=== PATIENT | female | born 1985 | race Caucasian/White ===

== ENCOUNTER 2017-09-05 19:17 | Emergency (ER) | payer MEDICAID ==
[2017-09-05 19:21] VITALS: BP 126/79
--- NOTE | 2017-09-05 19:45 | ER Document Report ---
ED ENT - General Chief Complaint: Ear Pain Stated Complaint: EAR PAIN,DIZZINESS Time Seen by Provider: 09/05/17 19:33 Notes: 32 year female c/o bilat ear itching and pain x 5 mos. itching becomes so intense it interferes with sleep. no fever. + swelling to ears. + drainage from ears TRAVEL OUTSIDE OF THE [place] IN LAST 30 DAYS: No - HPI Patient complains to provider of: Ear problem Location of pain: Ears - Related Data Allergies/Adverse Reactions: No Known Allergies Allergy (Verified 09/06/15 02:15) Past Medical History - General Information source: Patient - Social History Smoking Status: Never Smoker Frequency of alcohol use: None Drug Abuse: None Lives with: Family Family History: Reviewed & Not Pertinent - Medical History Medical History: Negative Psychiatric Medical History: Reports: Hx Attention Deficit Hyperactivity Disorder Past Surgical History: Denies: Hx Hysterectomy, Hx Pacemaker - Immunizations Hx Diphtheria, Pertussis, Tetanus Vaccination: Yes Review of Systems - Review of Systems Constitutional: No symptoms reported EENT: No symptoms reported Cardiovascular: No symptoms reported Respiratory: No symptoms reported Gastrointestinal: No symptoms reported Genitourinary: No symptoms reported Female Genitourinary: No symptoms reported Musculoskeletal: No symptoms reported Skin: No symptoms reported Hematologic/Lymphatic: No symptoms reported Neurological/Psychological: No symptoms reported Physical Exam - Vital signs Vitals: Temp Pulse Resp BP Pulse Ox 97.9 F 105 H 18 126/79 H 98 09/05/17 19:17 09/05/17 19:17 09/05/17 19:17 09/05/17 19:17 09/05/17 19:17 Interpretation: Normal - General General appearance: Appears well, Alert - HEENT Head: Normocephalic, Atraumatic Eyes: Normal Conjunctiva: Normal Pupils: PERRL Ears: Other - Honey-colored crusts and scaling are seen on the postauricular skin, tragus and intertragus notch External canal: Erythema, Swollen, Other - + thick white purulent drainage Tympanic membrane: Normal - Respiratory Respiratory status: No respiratory distress Chest status: Nontender Breath sounds: Normal Chest palpation: Normal - Cardiovascular Rhythm: Regular Heart sounds: Normal auscultation Murmur: No - Abdominal Inspection: Normal Distension: No distension Bowel sounds: Normal Tenderness: Nontender Organomegaly: No organomegaly - Back Back: Normal, Nontender - Extremities General upper extremity: Normal inspection, Nontender, Normal color, Normal ROM , Normal temperature General lower extremity: Normal inspection, Nontender, Normal color, Normal ROM , Normal temperature, Normal weight bearing. No: Saad's sign - Neurological Neuro grossly intact: Yes Cognition: Normal Orientation: AAOx4 [place] Coma Scale Eye Opening: Spontaneous [place] Coma Scale Verbal: Oriented [place] Coma Scale Motor: Obeys Commands Viel[place] Coma Scale Total: 15 Speech: Normal Motor strength normal: LUE, RUE, LLE, RLE Sensory: Normal - Psychological Associated symptoms: Normal affect, Normal mood - Skin Skin Temperature: Warm Skin Moisture: Dry Skin Color: Normal Course - Re-evaluation Re-evalutation: 09/05/17 19:45 low suspicion for sepsis, mastoiditis, abscess. skin changes exhibit eczematous changes with possibly a secondary staph infection. will treat with oral and topical antibiotics and a topical steroid cream. pt instructed to follow up with primary care tomorrow for further evaluation and treatment - Vital Signs Vital signs: Temp Pulse Resp BP Pulse Ox 97.9 F 105 H 18 126/79 H 98 09/05/17 19:17 09/05/17 19:17 09/05/17 19:17 09/05/17 19:17 09/05/17 19:17 Discharge - Discharge Clinical Impression: External otitis Qualifiers: Otitis externa type: unspecified type Chronicity: acute Laterality: bilateral Qualified Code(s): H60.503 - Unspecified acute noninfective otitis externa, bilateral Instructions: Otitis Externa ([facility]), Antibiotic Therapy ([facility]), Use of Ear Drops ([facility]), Topical Steroid Cream or Ointment ([facility]), Meclizine ([facility]) Additional Instructions: please take medications as prescribed please follow up with your primary care tomorrow for further evaluation and treatment Prescriptions: Cephalexin Monohydrate [Keflex 500 mg Capsule] 500 mg PO QID #28 capsule Ciprofloxacin HCl/Dexameth [Ciprodex Otic Suspension Drops] 3 drop BTH_EAR BID # 1 bottle Hydrocortisone [Hydrocortisone 1% Cream 28.35 Gm] 1 applic TP BID #30 g Hydroxyzine HCl [Atarax 25 mg Tablet] 2 tab PO QID #25 tablet
== END 2017-09-05 20:20 | disposition home or self-care (01) ==
LOC: ER 19:17
DX: H60.503 Unspecified acute noninfective otitis externa, bilateral (principal)
CPT/HCPCS: 99282

== ENCOUNTER 2017-11-30 17:06 | Emergency (ER) | payer SELFPAY ==
--- NOTE | 2017-11-30 17:25 | ER Document Report ---
ED General - General Chief Complaint: Anxiety Stated Complaint: ANXIETY Mode of Arrival: Ambulatory Information source: Patient Notes: Patient is 32-year-old female with a history of ADHD and depression presents to the emergency department due to an anxiety attack. Patient states that it feels like there are shocks going through her body and feels that something is crawling in her hair and ears. Patient that she was unable to get any sleep last night due to there being black spots on her short that she has tried to clean with bleach. Patient denies any fevers or recent stress although mother states she was under a lot of stress last year. TRAVEL OUTSIDE OF THE [place] IN LAST 30 DAYS: No - Related Data Allergies/Adverse Reactions: No Known Allergies Allergy (Verified 11/30/17 17:07) Past Medical History - General Information source: Patient - Social History Smoking Status: Unknown if Ever Smoked Family History: Reviewed & Not Pertinent Renal/ Medical History: Denies: Hx Peritoneal Dialysis Psychiatric Medical History: Reports: Hx Attention Deficit Hyperactivity Disorder, Hx Depression - Immunizations Hx Diphtheria, Pertussis, Tetanus Vaccination: Yes Physical Exam - Vital signs Vitals: Temp Pulse Resp BP Pulse Ox 98.1 F 112 H 20 107/84 100 11/30/17 17:11 11/30/17 17:11 11/30/17 17:11 11/30/17 17:11 11/30/17 17:11 - Notes Notes: GENERAL: Alert,very anxious,tearful. Constantly running hands through her hair. HEAD: Normocephalic, atraumatic. EYES: Pupils equal, round, and reactive to light. Extraocular movements intact. ENT: Oral mucosa moist, tongue midline. NECK: Full range of motion. Supple. Trachea midline. LUNGS: Clear to auscultation bilaterally, no wheezes, rales, or rhonchi. No respiratory distress. HEART: Regular rate and rhythm. No murmurs, gallops, or rubs. EXTREMITIES: Moves all 4 extremities spontaneously. NEUROLOGICAL: Alert and oriented x3. Normal speech. PSYCH: Very anxious, tearful. SKIN: Warm, dry, normal turgor. No rashes or lesions noted. Course - Vital Signs Vital signs: Temp Pulse Resp BP Pulse Ox 98.1 F 112 H 20 107/84 100 11/30/17 17:11 11/30/17 17:11 11/30/17 17:11 11/30/17 17:11 11/30/17 17:11 Discharge - Discharge Instructions: Anxiety ([facility]) Scribe Documentation - Scribe Written by Rodney:: Rodney Guerrero, 11/30/2017 17:31 acting as scribe for :: Demario
[2017-11-30] MEDS ORDERED: LORAZEPAM INJ 2 MG/1 ML VIAL IM ONE (17:31)
[2017-11-30 17:53] LABS: ABSOLUTE BASOPHILS # (AUTO) 0.1 10^3/uL (0.0-0.2); ABSOLUTE EOSINOPHILS # (AUTO) 0.5 10^3/uL (0.0-0.6); ABSOLUTE LYMPHOCYTES (AUTO) 3.4 10^3/uL (0.5-4.7); ABSOLUTE MONOCYTES (AUTO) 1.8 10^3/uL (0.1-1.4); ABSOLUTE NEUT (AUTO) 6.8 10^3/uL (1.7-8.2); EOSINOPHILS % (AUTO) 4.1 % (0-6); HEMATOCRIT 39.7 % (36.0-47.0); HEMOGLOBIN 14.1 g/dL (12.0-15.5); MEAN CORPUSCULAR HEMOGLOBIN 30.3 pg (27.0-33.4); MEAN CORPUSCULAR HGB CONC 35.4 g/dL (32.0-36.0); MEAN CORPUSCULAR VOLUME 86 fl (80-97); MONOCYTES % (AUTO) 14.2 % (3-13); PLATELET COUNT 322 10^3/uL (150-450); RED BLOOD COUNT 4.64 10^6/uL (3.72-5.28); RED CELL DISTRIBUTION WIDTH 13.2 % (11.5-14.0); SEGMENTED NEUTROPHILS % (AUTO) 53.7 % (42-78); TOTAL CELLS COUNTED % (AUTO) 100 %; WHITE BLOOD COUNT 12.6 10^3/uL (4.0-10.5)
[2017-11-30 17:58] LABS: APPEARANCE,URINE SLIGHTLY-CLOUDY; BILIRUBIN,URINE NEGATIVE (NEGATIVE); GLUCOSE, URINE NEGATIVE (NEGATIVE); KETONES,URINE TRACE mg/dL (NEGATIVE); LEUKOCYTE ESTERASE,URINE SMALL (NEGATIVE); NITRITE,URINE NEGATIVE (NEGATIVE); PROTEIN,URINE 100 mg/dL (NEGATIVE); UROBILINOGEN,URINE NEGATIVE mg/dL (<2.0)
[2017-11-30 18:03] LABS: COLOR,URINE DARK YELLOW
[2017-11-30 18:16] LABS: ALANINE AMINOTRANSFERASE 49 U/L (9-52); ALBUMIN 4.6 g/dL (3.5-5.0); ALKALINE PHOSPHATASE 69 U/L (38-126); ANION GAP 16 (5-19); ASPARTATE AMINO TRANSFERASE 51 U/L (14-36); BILIRUBIN,DIRECT 0.3 mg/dL (0.0-0.4); BILIRUBIN,TOTAL 0.4 mg/dL (0.2-1.3); BLOOD UREA NITROGEN 14 mg/dL (7-20); CALCIUM 9.4 mg/dL (8.4-10.2); CARBON DIOXIDE 20 mmol/L (22-30); CHLORIDE 108 mmol/L (98-107); GLUCOSE 106 mg/dL (75-110); POTASSIUM 3.6 mmol/L (3.6-5.0); SODIUM 144.3 mmol/L (137-145); TOTAL PROTEIN 7.3 g/dL (6.3-8.2)
[2017-11-30 18:17] LABS: ACETAMINOPHEN < 10 ug/mL (10-30); ALCOHOL < 10 mg/dL (NONE DETECTED); SALICYLATE < 1.0 mg/dL (2.0-20.0)
[2017-11-30 18:42] LABS: URINE BARBITURATES SCREEN NEGATIVE; URINE BENZODIAZEPINES SCREEN NEGATIVE; URINE COCAINE SCREEN NEGATIVE; URINE MARIJUANA (THC) SCREEN NEGATIVE; URINE METHADONE SCREEN NEGATIVE; URINE PHENCYCLIDINE SCREEN NEGATIVE
[2017-11-30] MEDS ORDERED: HYDROXYZINE PAMOATE 50 MG CAPSULE PO ONE (18:47)
--- NOTE | 2017-11-30 18:49 | EKG REPORT ---
SEVERITY:- ABNORMAL ECG - SINUS RHYTHM DIFFUSE NONSPECIFIC ST-T CHANGES : Confirmed by: Brian Douglas MD 30-Nov-2017 18:48:21
--- NOTE | 2017-11-30 18:55 | ER Document Report ---
ED General - General Chief Complaint: Anxiety Stated Complaint: ANXIETY Time Seen by Provider: 11/30/17 17:30 Mode of Arrival: Ambulatory Information source: Patient, Parent Notes: 32-year-old female presents with complaints of anxiety insomnia and believing that there is bugs all over her. Patient has been scratching at her head for the past few weeks, she denies any fevers or chills denies any nausea vomiting. Patient states she sees black bugs all over. TRAVEL OUTSIDE OF THE [place] IN LAST 30 DAYS: No - HPI Onset: Other Onset/Duration: Persistent Quality of pain: No pain Severity: Mild Pain Level: Denies Associated symptoms: Other - Insomnia Exacerbated by: Denies Relieved by: Denies Similar symptoms previously: No Recently seen / treated by doctor: No - Related Data Allergies/Adverse Reactions: No Known Allergies Allergy (Verified 11/30/17 17:07) Past Medical History - General Information source: Patient - Social History Smoking Status: Never Smoker Cigarette use (# per day): No Chew tobacco use (# tins/day): No Smoking Education Provided: No Frequency of alcohol use: None Drug Abuse: None Family History: Reviewed & Not Pertinent Patient has suicidal ideation: No Patient has homicidal ideation: No Renal/ Medical History: Denies: Hx Peritoneal Dialysis Psychiatric Medical History: Reports: Hx Attention Deficit Hyperactivity Disorder, Hx Depression Past Surgical History: Denies: Hx Hysterectomy, Hx Pacemaker - Immunizations Hx Diphtheria, Pertussis, Tetanus Vaccination: Yes Review of Systems - Review of Systems Notes: REVIEW OF SYSTEMS: CONSTITUTIONAL : Denies fever, chills, or sweats. Denies recent illness. EENT: States there are foreign objects in her ears CARDIOVASCULAR: Denies chest pain. Denies palpitations or racing or irregular heart beat. Denies ankle edema. RESPIRATORY: Denies cough, cold, or chest congestion. Denies shortness of breath, difficulty breathing, or wheezing. GASTROINTESTINAL: Denies abdominal pain or distention. Denies nausea, vomiting , or diarrhea. Denies blood in vomitus, stools, or per rectum. Denies black, tarry stools. Denies constipation. GENITOURINARY: Denies difficulty urinating, painful urination, burning, frequency, blood in urine, or discharge. FEMALE GENITOURINARY: Denies vaginal bleeding, heavy or abnormal periods, irregular periods. Denies vaginal discharge or odor. MUSCULOSKELETAL: Denies back or neck pain or stiffness. Denies joint pain or swelling. SKIN: Itching HEMATOLOGIC : Denies easy bruising or bleeding. LYMPHATIC: Denies swollen, enlarged glands. NEUROLOGICAL: Denies confusion or altered mental status. Denies passing out or loss of consciousness. Denies dizziness or lightheadedness. Denies headache. Denies weakness or paralysis or loss of use of either side. Denies problems with gait or speech. Denies sensory loss, numbness, or tingling. Denies seizures. PSYCHIATRIC: Anxiety stress. ALL OTHER SYSTEMS REVIEWED AND NEGATIVE. PHYSICAL EXAMINATION: GENERAL: Patient is having erratic movements on the bed HEAD: Atraumatic, normocephalic. EYES: Pupils equal round and reactive to light, extraocular movements intact, conjunctiva are normal. ENT: Nares patent, oropharynx clear without exudates. Moist mucous membranes. NECK: Normal range of motion, supple without lymphadenopathy LUNGS: Breath sounds clear to auscultation bilaterally and equal. No wheezes rales or rhonchi. HEART: Regular rate and rhythm without murmurs ABDOMEN: Soft, nontender, nondistended abdomen. No guarding, no rebound. No masses appreciated. Female : deferred Musculoskeletal: Normal range of motion, no pitting or edema. No cyanosis. NEUROLOGICAL: Cranial nerves grossly intact. Normal speech, normal gait. Normal sensory, motor exams PSYCH: Anxious SKIN: Multiple scabs from picking at herself Dictation was performed using [employer] voice recognition software Physical Exam - Vital signs Vitals: Temp Pulse Resp BP Pulse Ox 98.1 F 112 H 20 107/84 100 11/30/17 17:11 11/30/17 17:11 11/30/17 17:11 11/30/17 17:11 11/30/17 17:11 Course - Re-evaluation Re-evalutation: 11/30/17 20:34 Patient's mother notes that she is doing better than her usual baseline, that she overall is acting appropriate however does note that she has not been sleeping well and has been quite anxious, given these symptoms and presentation and a normal examination otherwise I do believe it is all anxiety related, I will treat the patient with Vistaril for anxiety for insomnia and for the itching After performing a Medical Screening Examination, I estimate there is LOW risk for any life threatening rash. At this time the patient looks extremely well and there are no signs of systemic infection, however this may change at any time and the rash may change. I have reevaluated this patient multiple times and no significant life threatening changes are noted. The patient and I have discussed the diagnosis and risks, and we agree with discharging home with close follow-up with the understanding that symptoms and presentations can change. We also discussed returning to the Emergency Department immediately if new or worsening symptoms occur. We have discussed the symptoms which are most concerning (e.g., changing or worsening pain, fever, numbness, weakness, cool or painful digits) that necessitate immediate return. - Vital Signs Vital signs: Temp Pulse Resp BP Pulse Ox 97.4 F 103 H 20 95/64 L 99 11/30/17 19:17 11/30/17 19:17 11/30/17 19:17 11/30/17 19:17 11/30/17 19:17 - Laboratory Result Diagrams: 11/30/17 17:29 11/30/17 17:29 Laboratory results interpreted by me: 11/30/17 11/30/17 11/30/17 17:29 17:29 17:29 WBC 12.6 H Monocytes % 14.2 H Absolute Monocytes 1.8 H Chloride 108 H Carbon Dioxide 20 L AST 51 H Urine Protein 100 H Urine Ketones TRACE H Ur Leukocyte Esterase SMALL H Urine Ascorbic Acid 40 H Salicylates < 1.0 L Acetaminophen < 10 L Discharge - Discharge Clinical Impression: Anxiety, Itching Insomnia Qualifiers: Insomnia type: unspecified Qualified Code(s): G47.00 - Insomnia, unspecified Condition: Stable Disposition: HOME, SELF-CARE Instructions: Anxiety ([facility]) Additional Instructions: Please follow up with your physicians for further care or return immediately if there are any other concerns Prescriptions: Hydroxyzine Pamoate [Vistaril 25 mg Capsule] 25 mg PO Q6 30 Days #120 capsule Forms: Return to Work
--- NOTE | 2017-11-30 19:15 | ER Document Report ---
ED Medical Screen (RME) - General Chief Complaint: Anxiety Stated Complaint: ANXIETY Time Seen by Provider: 11/30/17 17:30 Mode of Arrival: Ambulatory Notes: Patient is 32-year-old female with a history of ADHD and depression presents to the emergency department due to an anxiety attack. Patient states that it feels like there are shocks going through her body and feels that something is crawling in her hair and ears. Patient that she was unable to get any sleep last night due to there being black spots on her short that she has tried to clean with bleach. Patient denies any fevers or recent stress although mother states she was under a lot of stress last year. TRAVEL OUTSIDE OF THE [place] IN LAST 30 DAYS: No - Related Data Allergies/Adverse Reactions: No Known Allergies Allergy (Verified 11/30/17 17:07) Past Medical History - Social History Frequency of alcohol use: None Drug Abuse: None Renal/ Medical History: Denies: Hx Peritoneal Dialysis Psychiatric Medical History: Reports: Hx Attention Deficit Hyperactivity Disorder, Hx Depression Past Surgical History: Denies: Hx Hysterectomy, Hx Pacemaker - Immunizations Hx Diphtheria, Pertussis, Tetanus Vaccination: Yes Physical Exam - Vital signs Vitals: Temp Pulse Resp BP Pulse Ox 98.1 F 112 H 20 107/84 100 11/30/17 17:11 11/30/17 17:11 11/30/17 17:11 11/30/17 17:11 11/30/17 17:11 - Notes Notes: GENERAL: Alert,very anxious,tearful. Constantly running hands through her hair. HEAD: Normocephalic, atraumatic. EYES: Pupils equal, round, and reactive to light. Extraocular movements intact. ENT: Oral mucosa moist, tongue midline. NECK: Full range of motion. Supple. Trachea midline. LUNGS: Clear to auscultation bilaterally, no wheezes, rales, or rhonchi. No respiratory distress. HEART: Regular rate and rhythm. No murmurs, gallops, or rubs. EXTREMITIES: Moves all 4 extremities spontaneously. NEUROLOGICAL: Alert and oriented x3. Normal speech. PSYCH: Very anxious, tearful. SKIN: Warm, dry, normal turgor. No rashes or lesions noted. Course - Vital Signs Vital signs: Temp Pulse Resp BP Pulse Ox 97.4 F 103 H 20 95/64 L 99 11/30/17 19:17 11/30/17 19:17 11/30/17 19:17 11/30/17 19:17 11/30/17 19:17 - Laboratory Result Diagrams: 11/30/17 17:29 11/30/17 17:29 Laboratory results interpreted by me: 11/30/17 11/30/17 11/30/17 17:29 17:29 17:29 WBC 12.6 H Monocytes % 14.2 H Absolute Monocytes 1.8 H Chloride 108 H Carbon Dioxide 20 L AST 51 H Urine Protein 100 H Urine Ketones TRACE H Ur Leukocyte Esterase SMALL H Urine Ascorbic Acid 40 H Salicylates < 1.0 L Acetaminophen < 10 L Doctor's Discharge - Discharge Condition: Stable Disposition: HOME, SELF-CARE Instructions: Anxiety ([facility]) Additional Instructions: Please follow up with your physicians for further care or return immediately if there are any other concerns Prescriptions: Hydroxyzine Pamoate [Vistaril 25 mg Capsule] 25 mg PO Q6 30 Days #120 capsule Forms: Return to Work Scribe Documentation - Scribe Written by Rodney:: Rodney Guerrero, 11/30/2017 19:19 acting as scribe for :: Demario
[2017-11-30 19:18] VITALS: BP 95/64
== END 2017-11-30 19:18 | disposition home or self-care (01) ==
LOC: ER 17:06
DX: L29.9 Pruritus, unspecified (principal); F41.9 Anxiety disorder, unspecified; G47.00 Insomnia, unspecified
CPT/HCPCS: 93005; 99283; 96372; 36415; 80307 ×4; 84703; 85025; 80053; 81001; 93010; J2060

== ENCOUNTER 2019-08-29 08:43 | Emergency (ER) | payer OTHER ==
[2019-08-29] MEDS ORDERED: DIPH/PERTUSS(ACELL)/TETANUS VAC/PF 0.5 ML SYR (>=10YO) IM ONE (09:27)
[2019-08-29] MEDS ORDERED: ACETAMINOPHEN 325 MG TABLET PO ONE (09:27)
--- NOTE | 2019-08-29 09:29 | ER Document Report ---
ED Medical Screen (RME) - General Chief Complaint: Laceration Stated Complaint: HEAD INJURY Time Seen by Provider: 08/29/19 09:22 Notes: Patient is a 34-year-old female who presents to the emergency department with head trauma. Patient was at work and a very large heavy pole fell on top of her head, causing her to have a laceration to her right anterior head. Patient states that she feels a little lightheaded. Denies any new weakness. Patient was able to walk. Exam: Hematoma and laceration noted to anterior right head, about 2 cm away from hairline. I have greeted and performed a rapid initial assessment of this patient. A comprehensive ED assessment and evaluation of the patient, analysis of test results and completion of medical decision making process will be conducted by an additional ED providers. TRAVEL OUTSIDE OF THE [place] IN LAST 30 DAYS: No - Related Data Allergies/Adverse Reactions: No Known Allergies Allergy (Verified 08/29/19 09:19) Past Medical History - Social History Chew tobacco use (# tins/day): No Frequency of alcohol use: None Drug Abuse: None Renal/ Medical History: Denies: Hx Peritoneal Dialysis Psychiatric Medical History: Reports: Hx Attention Deficit Hyperactivity Disorder, Hx Depression Past Surgical History: Denies: Hx Hysterectomy, Hx Pacemaker - Immunizations Hx Diphtheria, Pertussis, Tetanus Vaccination: Yes Physical Exam - Vital signs Vitals: Temp Pulse Resp BP Pulse Ox 97.9 F 90 20 124/81 100 08/29/19 08:47 08/29/19 08:47 08/29/19 08:47 08/29/19 08:47 08/29/19 08:47 Course - Vital Signs Vital signs: Temp Pulse Resp BP Pulse Ox 97.9 F 90 20 124/81 100 08/29/19 08:47 08/29/19 08:47 08/29/19 08:47 08/29/19 08:47 08/29/19 08:47
--- NOTE | 2019-08-29 10:03 | RADIOLOGY REPORT (SQ) ---
EXAM DESCRIPTION: CT HEAD WITHOUT COMPLETED DATE/TIME: 08/29/2019 9:48 am REASON FOR STUDY: head trauma; heavy pole fell on head COMPARISON: 07/25/2009 TECHNIQUE: Axial images acquired through the brain without intravenous contrast. Images reviewed wi th bone, brain and subdural windows. Additional sagittal and coronal reconstructions were generated. Images stored on PACS. All CT scanners at this facility use dose modulation, iterative reconstruction, and/or weight based d osing when appropriate to reduce radiation dose to as low as reasonably achievable (ALARA). [facility]: Dose Right [facility]: CareDose [facility]: Dose Right [facility]: Teradose 4D [facility]: LiveOps RADIATION DOSE: CT Rad equipment meets quality standard of care and radiation dose reduction techniq ues were employed. CTDIvol: 53.2 mGy. DLP: 1070 mGy-cm. mGy. LIMITATIONS: None. FINDINGS: VENTRICLES: Normal size and contour. CEREBRUM: No masses. No hemorrhage. No midline shift. No evidence for acute infarction. Normal gra y/white matter differentiation. No areas of low density in the white matter. CEREBELLUM: No masses. No hemorrhage. No alteration of density. No evidence for acute infarction. EXTRAAXIAL SPACES: No fluid collections. No masses. Unchanged pineal gland calcifications. ORBITS AND GLOBE: No intra- or extraconal masses. Normal contour of globe without masses. CALVARIUM: No fracture. PARANASAL SINUSES: No fluid or mucosal thickening. SOFT TISSUES: Soft tissue swelling and subcutaneous gas along the right frontal calvarium. OTHER: No other significant finding. IMPRESSION: Soft tissue swelling and subcutaneous gas along the right frontal calvarium. No evidenc e of fracture or other acute intracranial process. EVIDENCE OF ACUTE STROKE: NO. COMMENT: Quality ID # [id number]: Final reports with documentation of one or more dose reduction techniques (e.g., Automated exposure control, adjustment of the mA and/or kV according to patient size, use of iterative reconstruction technique) TECHNICAL DOCUMENTATION: JOB ID: [id number] [employer]- All Rights Reserved Reading location - IP/workstation name: [email or web address]
[2019-08-29] MEDS ORDERED: LIDOCAINE 1% INJ-PF (10 MG/ML) 30 ML SDV INJ ONE (10:29)
--- NOTE | 2019-08-29 10:36 | ER Document Report ---
ED General - General Chief Complaint: Laceration Stated Complaint: HEAD INJURY Time Seen by Provider: 08/29/19 09:22 Primary Care Provider: PARISH VALADEZ MD [NO LOCAL MD] - Follow up as needed TRAVEL OUTSIDE OF THE [place] IN LAST 30 DAYS: No - HPI Notes: Patient is a 34-year-old female with no significant past medical history who presents complaining of head injury by a metal pole 2 to 3 hours ago. Patient states that it was a loose pole on 1 of the moving trucks that hit her on the top of the head. + mild OCHOA, no worst of life and not severe. Patient states that she did not lose consciousness or have any vomiting. Patient states that she did feel somewhat nauseated. Patient states that she feels well now. She does have soreness to the top of her head and was bleeding. Unknown last tetanus. Denies drug allergies. Denies any fever, neck pain, changes in vision/speech/mentation/hearing, URI, sore throat, chest pain, palpitations, syncope, cough, shortness of breath, wheeze, dyspnea, abdominal pain, vomiting/diarrhea, urinary retention, dysuria, hematuria, loss of control of bowel or bladder, numbness/tingling, saddle anesthesia, muscle paralysis/weakness, or rash. - Related Data Allergies/Adverse Reactions: No Known Allergies Allergy (Verified 08/29/19 09:19) Past Medical History - Social History Smoking Status: Never Smoker Chew tobacco use (# tins/day): No Frequency of alcohol use: None Drug Abuse: None Family History: Reviewed & Not Pertinent Patient has suicidal ideation: No Patient has homicidal ideation: No Renal/ Medical History: Denies: Hx Peritoneal Dialysis Psychiatric Medical History: Reports: Hx Attention Deficit Hyperactivity Disorder, Hx Depression Past Surgical History: Denies: Hx Hysterectomy, Hx Pacemaker - Immunizations Hx Diphtheria, Pertussis, Tetanus Vaccination: Yes Review of Systems - Review of Systems -: Yes All other systems reviewed and negative Physical Exam - Vital signs Vitals: Temp Pulse Resp BP Pulse Ox 97.9 F 90 20 124/81 100 08/29/19 08:47 08/29/19 08:47 08/29/19 08:47 08/29/19 08:47 08/29/19 08:47 - Notes Notes: PHYSICAL EXAMINATION: GENERAL: Well-appearing, well-nourished and in no acute distress. A&Ox4. Answers questions appropriately. HEAD: there is an irregular superficial 3cm laceration to the rt frontal scalp. No solano sign. EYES: Pupils equal round and reactive to light, extraocular movements intact, s clera anicteric, conjunctiva are normal. No raccoon eyes/entrapment ENT: EAC clear b/l. TM's intact b/l without erythema, fluid, or perforation. Nares patent and without discharge. oropharynx clear without exudates. No tonsilar hypertrophy or erythema. Moist mucous membranes. No sinus tenderness. No hemotympanum/CSF discharge. NECK: Normal range of motion, supple without lymphadenopathy. No rigidity. No midline tenderness. LUNGS: Breath sounds clear to auscultation bilaterally and equal. No wheezes rales or rhonchi. HEART: Regular rate and rhythm without murmurs, rubs, gallops. ABDOMEN: Soft, nontender, nondistended abdomen. No guarding, no rebound. Normal bowel sounds present. No CVA tenderness bilaterally. Musculoskeletal: Ext b/l: FROM to passive/active. Strength 5+/5. No deficits noted. No bony tenderness of extremities. Back: FROM to passive/active. Strength 5+/5. No vertebral point tenderness, stepoffs, or deformities. No other bony tenderness or ecchymosis. SLR negative b/l. Extremities: No cyanosis, clubbing, or edema b/l. Peripheral pulses 2+. Capillary refill less than 2 seconds. NEUROLOGICAL: NIH 0. GCS 15. Cranial nerves grossly intact. Normal speech, normal gait. Normal sensory, motor exams. Reflexes 2+ b/l. ASHA's negative. Pronator drift negative. Heel/chilel, finger/nose wnl. PSYCH: Normal mood, normal affect. SKIN: see above Course - Re-evaluation Re-evalutation: 08/29/19 Patient is an afebrile, well-hydrated, 34-year-old female who presents with head injury and scalp laceration. Vitals are acceptable without significant tachycardia, tachypnea, or hypoxia. PE is otherwise unremarkable for any focal neurological deficits. NIH 0, GCS 15, cranial nerves grossly intact. CT scan of the head was unremarkable. Wound was thoroughly irrigated and cleansed. Wound edges approximated appropriately utilizing 4 kiana. Wound dressing was placed. Patient tolerated procedure well without complication. Tdap updated today. Low suspicion for any acute glaucoma, temporal arteritis, meningitis, intracranial hemorrhage, ischemic stroke, or fracture at this time. Patient is aware that this condition can change from initial presentation and that she needs to monitor symptoms closely for any acute changes. Patient to recheck with your PCM in 2 to 3 days. Return to the ED with any other worsening/concerning symptoms. Patient is in agreement. - Vital Signs Vital signs: Temp Pulse Resp BP Pulse Ox 97.9 F 90 20 124/81 100 08/29/19 08:47 08/29/19 08:47 08/29/19 08:47 08/29/19 08:47 08/29/19 08:47 Procedures - Laceration/Wound Repair Head Wound length (cm): 3 Wound's Depth, Shape: Superficial, Irregular Laceration pre-procedure: Sterile PPE donned, Sterile drapes applied, Other - chlorhexadine/saline Anesthetic type: 1% Lidocaine Volume Anesthetic (mLs): 6 Wound explored: Clean, No foreign body removed Wound Repaired With: Kiana Number of Sutures: 4 Post-procedure wound care: Sterile dressing applied Post-procedure NV exam normal: Yes Complications: No Discharge - Discharge Clinical Impression: Head injury Qualifiers: Encounter type: initial encounter Qualified Code(s): S09.90XA - Unspecified injury of head, initial encounter Scalp laceration Qualifiers: Encounter type: initial encounter Qualified Code(s): S01.01XA - Laceration wi thout foreign body of scalp, initial encounter Condition: Stable Disposition: HOME, SELF-CARE Additional Instructions: Do not shower or bathe for 24 hours. After 24 hours you may shower but no submersion of the wound under water. Keep the original dressing on the wound for 24 hours unless the drainage soaks through. Change the dressing daily thereafter and keep the knots of the suture material clean from any dried discharge. You may leave the wound open to the air once there is no more discharge. See your PCM in 2-3 days for a recheck. Monitor for any signs of worsening pain or redness, purulent drainage, streaks, and/or fever. Return to the ED if noticing any of the above symptoms or as needed. Take medications as directed. Your sutures will need to be removed in 7-9 days. Return to the ED with any worsening symptoms and/or development of fever, headache, changes in behavior/mentation/vision/speech, chest pain, palpitations, syncope, shortness of breath, trouble breathing, abdominal pain, n/v/d, blood in stool/urine, loss of control of bowel/bladder, urinary retention, muscle weakness/paralysis, saddle anesthesia, numbness/tingling, or other worsening symptoms that are concerning to you. Prescriptions: Cephalexin Monohydrate [Keflex 500 mg Capsule] 500 mg PO BID #10 capsule Forms: Return to Work Referrals: PARISH VALADEZ MD [NO LOCAL MD] - Follow up as needed
[2019-08-29] MEDS ORDERED: FENTANYL CITRATE INJ/PF 100 MCG/2 ML AMPUL IM ONE (10:49)
[2019-08-29] MEDS ORDERED: HYDROCODONE/ACETAMINOPHEN 5-325 MG (6 TAB/ER DISP) PO PRN (12:07)
[2019-08-29 12:27] VITALS: BP 123/75
== END 2019-08-29 12:27 | disposition home or self-care (01) ==
LOC: ER 08:43
DX: S01.01XA Laceration without foreign body of scalp, initial encounter (principal); W20.8XXA Other cause of strike by thrown, projected or falling object, initial encounter; Y93.89 Activity, other specified; Y99.0 Civilian activity done for income or pay; R11.0 Nausea; Z23 Encounter for immunization
CPT/HCPCS: 12002; 70450; 90715; J3010; 90471; 96372; 99283

== ENCOUNTER 2019-09-12 15:57 | Emergency (ER) | payer OTHER ==
[2019-09-12 16:01] VITALS: BP 128/89
--- NOTE | 2019-09-12 16:18 | ER Document Report ---
HPI - HPI Time Seen by Provider: 09/12/19 16:08 Pain Level: Denies Context: Patient presents for staple removal. No fevers or chills no complications, no purulent discharge. They replaced 2 weeks ago. - REPRODUCTIVE Reproductive: DENIES: : Past Medical History - Social History Smoking Status: Never Smoker Frequency of alcohol use: Social Drug Abuse: None Family History: Reviewed & Not Pertinent Patient has suicidal ideation: No Patient has homicidal ideation: No Renal/ Medical History: Denies: Hx Peritoneal Dialysis Psychiatric Medical History: Reports: Hx Attention Deficit Hyperactivity Disorder, Hx Depression Past Surgical History: Denies: Hx Hysterectomy, Hx Pacemaker - Immunizations Hx Diphtheria, Pertussis, Tetanus Vaccination: Yes Vertical Provider Document - CONSTITUTIONAL Notes: PHYSICAL EXAMINATION: Reviewed vital signs and charting by RN GENERAL: Alert, interacts well. No acute distress. HEAD: Normocephalic, atraumatic. EYES: Pupils equal and round. Extraocular movements intact. ENT: Oral mucosa moist, tongue midline. NECK: Full range of motion. Trachea midline. PSYCH: Normal affect, normal mood. SKIN: Warm, dry, normal turgor. [place] in the scalp over the temporoparietal area on the left side clean dry intact no evidence of infection, erythema, purulent discharge - INFECTION CONTROL TRAVEL OUTSIDE OF THE [place] IN LAST 30 DAYS: No Course - Re-evaluation Re-evalutation: 09/12/19 16:18 Tach remove the kiana, patient tolerated procedure well. No complications. Stable for discharge - Vital Signs Vital signs: Temp Pulse Resp BP Pulse Ox 98.0 F 86 16 128/89 H 99 09/12/19 16:08 09/12/19 16:08 09/12/19 16:08 09/12/19 16:08 09/12/19 16:08 Discharge - Discharge Clinical Impression: Removal of staple Condition: Good Disposition: HOME, SELF-CARE Additional Instructions: You were seen in the emergency department for staple removal. The wound looks good. There is no evidence of infection. Please follow-up with your primary doctor if you have any concerns. Please return to the emergency department if you develop fever, the wound dehisces, meaning it opens up, or you have any other concerning symptoms.
== END 2019-09-12 16:25 | disposition home or self-care (01) ==
LOC: ER 15:57
DX: S01.01XD Laceration without foreign body of scalp, subsequent encounter (principal); X58.XXXD Exposure to other specified factors, subsequent encounter